=== PATIENT | male | born 1960 | race Caucasian/White ===

== ENCOUNTER 2020-04-03 09:58 | Outpatient (CLI) | payer MEDICARE, MEDICAID, SELFPAY ==
--- NOTE | 2020-04-03 11:00 | MR_ITS ---
WS: [id number] MRI LUMBAR SPINE NONCONTRAST TECHNIQUE: Sagittal T1, T2 and STIR imaging. Axial T1 and T2 imaging. CLINICAL INFORMATION: R93.7 Abnormal findings on diagnostic imaging of other pa... COMPARISON: MRI 2008 FINDINGS: Mild lumbar curve. No acute compression fractures. Multilevel degenerative disc disease of the lumbar spine. Prominent left T10-11 subarticular disc protrusion is new from 2008. Protrusion measures 8 x 10 mm. I mpingement on the left lower thoracic cord. Moderate central canal stenosis. Severe left and moderate right foraminal narrowing. Moderate facet arthropathy. L1-L2: Mild annular bulging. Mild facet arthropathy. Spinal canal and foramen are patent. L2-L3: Mild disc bulging and osteophytic ridging. Moderate central canal stenosis. Impingement subart icular recess bilaterally. Mild right and no significant left foraminal narrowing. Moderate facet art hropathy. L3-L4: Shallow central disc protrusion with moderate to severe central canal stenosis. Mild facet art hropathy. Mild right greater than left bony foraminal narrowing. L4-L5: Mild disc bulging with shallow left subarticular protrusion. Moderate central canal stenosis. Impingement on the traversing left greater than right L5 nerve roots. Mild left foraminal narrowing. L5-S1: Central disc protrusion with impingement on the traversing left greater than right S1 nerve ro ots. Mild to moderate central canal stenosis. Moderate facet arthropathy. Moderate to severe left and moderate right bony foraminal narrowing. Visualized pelvic bony structures: Normal. Paravertebral soft tissues: Normal. MR/MR lumbar spine wo con* [id number] IMPRESSION: 1. Prominent left T10-11 subarticular disc protrusion impinges the left lower thoracic cord with moderate central canal stenosis. Disc material measures 8 x 11 mm. 2. Moderate to severe left and moderate right foraminal narrowing at T10-T11. 3. Moderate central canal stenosis L2-3, moderate to severe L3-4 and moderate L4-5. 4. Impingement on the subarticular recess at multiple levels described above. 5. Central disc protrusion L5-S1 with mild central canal stenosis and impingem ent on the left greater than right S1 nerve roots. 6. Moderate to severe left L5-S1 foraminal narrowing.
== END 2020-04-03 09:59 | disposition home or self-care (01) ==
PROVIDERS: PCP Nurse Practitioner Family; Visit Provider Nurse Practitioner Family
DX: R93.7 Abnormal findings on diagnostic imaging of other parts of musculoskeletal system (principal); M51.27 Other intervertebral disc displacement, lumbosacral region; M48.061 Spinal stenosis, lumbar region without neurogenic claudication; M51.24 Other intervertebral disc displacement, thoracic region
CPT/HCPCS: 72148

== ENCOUNTER → 2020-07-10 08:39 | Outpatient (BNVA) | payer MEDICARE, MEDICAID, SELFPAY | PROVIDERS: PCP Nurse Practitioner Family; Visit Provider Orthopaedic Surgery | DX: G89.29 Other chronic pain (principal); M54.5 Low back pain | CPT/HCPCS: 72100; 72114 ==

== ENCOUNTER → 2020-08-11 13:33 | Outpatient (BNVA) | payer MEDICARE, MEDICAID, SELFPAY | PROVIDERS: PCP Nurse Practitioner Family; Visit Provider Orthopaedic Surgery | DX: G89.29 Other chronic pain (principal); M54.5 Low back pain; M48.061 Spinal stenosis, lumbar region without neurogenic claudication; M51.24 Other intervertebral disc displacement, thoracic region; Q76.49 Other congenital malformations of spine, not associated with scoliosis | CPT/HCPCS: 72050 ==

== ENCOUNTER 2020-08-31 14:32 | Outpatient (CLI) | payer MEDICARE, MEDICAID, SELFPAY ==
--- NOTE | 2020-08-31 15:15 | MR_ITS ---
WS: [id number] MRI CERVICAL SPINE NONCONTRAST TECHNIQUE: Sagittal T1, T2 and STIR imaging. Axial T2, gradient, and fiesta imaging. CLINICAL INFORMATION: M47.812 - Spondylosis without myelopathy or radiculopathy, cervical region COMPARISON: None. FINDINGS: Straightening of the normal cervical lordosis. Cord signal is normal. No high-grade central canal jacqueline rowing. C2-C3: Disc osteophytic ridging. Spinal canal is patent. Moderate right and no significant left sue inal narrowing. Mild facet arthropathy. C3-C4: Disc osteophyte complex with endplate ridging. Moderate central canal stenosis. Severe bilater al bony foraminal narrowing. Moderate facet arthropathy. C4-C5: Disc osteophyte complex with endplate ridging. Mild to moderate central canal stenosis. Severe left and moderate right bony foraminal narrowing. Moderate facet arthropathy. C5-C6: Small central disc protrusion. Contact of the cervical cord. Mild central canal stenosis. Mode rate facet arthropathy. Mild right and no significant left foraminal narrowing. C6-C7: Disc osteophyte complex eccentric to the right. Slight contact of the right ventral cervical c ord. Severe right and mild left bony foraminal narrowing. Moderate central canal stenosis. C7-T1: Disc osteophyte complex with endplate ridging. Mild central canal stenosis. Moderate bilateral bony foraminal narrowing. Visualized brain stem structures: Normal. Prevertebral soft tissues: Normal. MR/MR cervical spin wo con* [id number] IMPRESSION: 1. Straightening of the normal cervical lordosis. Cord signal is normal. 2. Moderate central canal stenosis C3-C4 C4-C5. 3. Small central disc protrusion C5-C6 with mild central canal stenosis. 4. Disc osteophyte complex C6-7 eccentric to the right with moderate central c anal stenosis and severe right foraminal narrowing. 5. Severe bilateral C3-C4 and left C4-5 bony foraminal narrowing.
== END 2020-08-31 14:33 | disposition home or self-care (01) ==
LOC: RADSHAW 14:39
PROVIDERS: PCP Nurse Practitioner Family; Visit Provider Orthopaedic Surgery
DX: M47.812 Spondylosis without myelopathy or radiculopathy, cervical region (principal); M48.02 Spinal stenosis, cervical region; M50.21 Other cervical disc displacement, high cervical region; M25.78 Osteophyte, vertebrae
CPT/HCPCS: 72141